=== PATIENT | female | born 1995 | race Caucasian/White ===

== ENCOUNTER 2017-11-05 21:44 | Emergency (ER) | payer OTHER ==
[2017-11-05] MEDS ORDERED: Ibuprofen TAB* 600 MG PO ONE (22:47)
--- NOTE | 2017-11-05 22:50 | ED ---
Influenza-Like Illness - HPI Summary HPI Summary: 22F presents with fever for past day. She has been taking nyquil and dayquil. She admits to a dry cough. She admits to body aches. She denies any chest pain , SOB, abdominal pain, nausea, vomiting, sore throat, or ear pain. She states that had a fever of 102 but did not take anything for it. She denies any headache. She denies any neck stiffness or photophobia. She has had a decrease in appetite but has been drinking normally. - History of Current Complaint Chief Complaint: EDFever Time Seen by Provider: 11/05/17 22:33 - Allergy/Home Medications Allergies/Adverse Reactions: Allergies Allergy/AdvReac Type Severity Reaction Status Date / Time No Known Allergies Allergy Verified 11/05/17 22:40 PMH/Surg Hx/FS Hx/Imm Hx Endocrine/Hematology History: Denies: Hx Anticoagulant Therapy Cardiovascular History: Denies: Hx Hypertension Infectious Disease History: No Infectious Disease History: Denies: Traveled Outside the [place] in Last 30 Days - Family History Known Family History: Negative: Cardiac Disease - Social History Alcohol Use: Occasionally Substance Use Type: Reports: None Smoking Status (MU): Never Smoked Tobacco Review of Systems Positive: Fever Negative: Chest Pain Positive: Cough. Negative: Shortness Of Breath Negative: Abdominal Pain All Other Systems Reviewed And Are Negative: Yes Physical Exam Triage Information Reviewed: Yes Vital Signs On Initial Exam: Initial Vitals Temp Pulse Resp BP Pulse Ox 99.3 F 89 18 132/72 99 11/05/17 21:52 11/05/17 21:52 11/05/17 21:52 11/05/17 21:52 11/05/17 21:52 Vital Signs Reviewed: Yes Appearance: Positive: Well-Appearing Skin: Positive: Warm, Dry Head/Face: Positive: Normal Head/Face Inspection Eyes: Positive: Normal, EOMI, TIMOTHY, Conjunctiva Clear ENT: Positive: Normal ENT inspection, Pharynx normal, TMs normal Neck: Positive: Supple, Nontender, No Lymphadenopathy. Negative: Nuchal Rigidity Respiratory/Lung Sounds: Positive: Clear to Auscultation, Breath Sounds Present Cardiovascular: Positive: Normal, RRR Abdomen Description: Positive: Nontender, Soft Bowel Sounds: Positive: Present Musculoskeletal: Positive: Normal Neurological: Positive: Normal Psychiatric: Positive: Normal - Collette Coma Scale Coma Scale Total: 15 Diagnostics - Vital Signs Vital Signs Temp Pulse Resp BP Pulse Ox 11/05/17 21:52 99.3 F 89 18 132/72 99 - Laboratory Lab Results: Lab Results 11/05/17 11/05/17 Range/Units 22:22 22:24 Influenza A (Rapid) Negative (Negative) Influenza B (Rapid) Negative (Negative) Group A Strep Rapid Negative (Negative) Lab Statement: Any lab studies that have been ordered have been reviewed, and results considered in the medical decision making process. Flu Symptom Course/Dx - Course Course Of Treatment: 22F presents with fever for past day. She has been taking nyquil and dayquil. She admits to a dry cough. She admits to body aches. She denies any chest pain, SOB, abdominal pain, nausea, vomiting, sore throat, or ear pain. She states that had a fever of 102 but did not take anything for it. She denies any headache. She denies any neck stiffness or photophobia. She has had a decrease in appetite but has been drinking normally. on exam lungs CTA. pharynx normal. abdomen soft nontender. flu and strept neg. discussed with patient likely viral. told to add ibuprofen. patient understand and agrees with plan. - Diagnoses Differential Diagnosis/HQI/PQRI: Positive: Influenza, Pneumonia, Upper Respiratory Infection Provider Diagnoses: Fever Discharge - Discharge Plan Condition: Good Disposition: HOME Patient Education Materials: Fever in Adults (ED) Referrals: No Primary Care Phys,NOPCP [Primary Care Provider] - Additional Instructions: Take Tylenol or ibuprofen every 6 hours for fever Use saline in the nose for nasal congestion Use humidifier or place warm bowls of water around the room for cough Return to ED if develop any new or worsening symptoms
[2017-11-05 23:10] VITALS: BP 117/52
== END 2017-11-05 23:06 | disposition home or self-care (01) ==
LOC: ED 21:44
DX: R50.9 Fever, unspecified (principal); R05 Cough; R52 Pain, unspecified
CPT/HCPCS: 87502; 87651; 99282; A9270-GY

== ENCOUNTER 2019-01-09 06:36 | Emergency (ER) | payer OTHER ==
--- NOTE | 2019-01-09 06:57 | ED ---
Throat Pain/Nasal Congestion - HPI Summary HPI Summary: Patient is a 22-year-old female with a history of strep throat as a child presenting to the ED with sore throat 24 hours. 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 She denies any fevers, sweats, chills. She does endorse a decreased appetite and feelings of GERD-like symptoms intermittently. She states this is improved with over-the- counter Tums. She offers no other complaints on this date. She states she has been otherwise healthy and feels at her baseline. - History of Current Complaint Chief Complaint: EDThroatPain Time Seen by Provider: 01/09/19 06:48 Hx Obtained From: Patient Onset/Duration: Sudden Onset Severity: Moderate - Epiglottits Risk Factors Epiglottis Risk Factors: Negative - Allergies/Home Medications Allergies/Adverse Reactions: Allergies Allergy/AdvReac Type Severity Reaction Status Date / Time No Known Allergies Allergy Verified 11/05/17 22:40 PMH/Surg Hx/FS Hx/Imm Hx Previously Healthy: Yes Endocrine/Hematology History: Denies: Hx Anticoagulant Therapy Cardiovascular History: Denies: Hx Hypertension Infectious Disease History: No Infectious Disease History: Denies: Traveled Outside the [place] in Last 30 Days - Family History Known Family History: Negative: Cardiac Disease - Social History Occupation: Student Lives: Dormitory/Roommates Alcohol Use: Occasionally Hx Substance Use: No Substance Use Type: Reports: None Smoking Status (MU): Never Smoked Tobacco Review of Systems Constitutional: Negative Negative: Fever, Chills, Fatigue, Skin Diaphoresis Negative: Diplopia, Drainage Positive: Sore Throat. Negative: Dental Pain, Ear Ache, Nasal Discharge Negative: Palpitations, Chest Pain Genitourinary: Negative Positive: no symptoms reported, see HPI Negative: Arthralgia, Myalgia Skin: Negative All Other Systems Reviewed And Are Negative: Yes Physical Exam Triage Information Reviewed: Yes Vital Signs On Initial Exam: Initial Vitals Temp Pulse Resp BP Pulse Ox 98.2 F 51 16 123/67 99 01/09/19 06:36 01/09/19 06:36 01/09/19 06:36 01/09/19 06:36 01/09/19 06:36 Vital Signs Reviewed: Yes Appearance: Positive: Well-Appearing, Well-Nourished Skin: Positive: Warm, Skin Color Reflects Adequate Perfusion Head/Face: Positive: Normal Head/Face Inspection, Temporal Artery Tenderness Eyes: Positive: EOMI, Conjunctiva Clear ENT: Positive: Pharyngeal erythema. Negative: Tonsillar swelling, Tonsillar exudate, Hoarse voice, Dental tenderness, Sinus tenderness Neck: Positive: No Lymphadenopathy Respiratory/Lung Sounds: Positive: Clear to Auscultation, Breath Sounds Present Cardiovascular: Positive: RRR, Pulses are Symmetrical in both Upper and Lower Extremities Musculoskeletal: Positive: Normal, Strength/ROM Intact Neurological: Positive: Speech Normal Psychiatric: Positive: Normal, Affect/Mood Appropriate Diagnostics - Vital Signs Vital Signs Temp Pulse Resp BP Pulse Ox 01/09/19 06:36 98.2 F 51 16 123/67 99 - Laboratory Lab Statement: Any lab studies that have been ordered have been reviewed, and results considered in the medical decision making process. EENT Course/Dx - Course Course Of Treatment: Patient is evaluated for sore throat. On physical examination, she has pharyngeal erythema without tonsillar exudates or swelling. She endorses pain with swallowing, however denies any difficulty with swallowing. She denies any fevers, sweats, chills. Vital signs are stable on arrival. Strep swab obtained. Strep swab negative. She will be diagnosed with posterior pharyngitis. She is given instructions for Tylenol and Cepacol tabs. She understands these and voices no concerns at this time. - Diagnoses Provider Diagnoses: Pharyngitis Discharge - Sign-Out/Discharge Documenting (check all that apply): Patient Departure Patient Received Moderate/Deep Sedation with Procedure: No - Discharge Plan Condition: Stable Disposition: HOME Patient Education Materials: Pharyngitis (ED) Referrals: No Primary Care Phys,NOPCP [Primary Care Provider] - Additional Instructions: Over the counter cepacol tabs or chloroseptic tabs Drink plenty of water Rest Tylenol 650mg three times daily for discomfort - Billing Disposition and Condition Condition: STABLE Disposition: Home
[2019-01-09 08:01] VITALS: BP 121/64
== END 2019-01-09 08:00 | disposition home or self-care (01) ==
LOC: ED 06:36
DX: J02.9 Acute pharyngitis, unspecified (principal)
CPT/HCPCS: 87651; 99282

== ENCOUNTER 2020-01-28 19:53 | Emergency (ER) | payer OTHER ==
[2020-01-28] MEDS ORDERED: Cephalexin CAP* 500 MG PO ONE (21:23)
--- NOTE | 2020-01-28 21:25 | ED ---
Skin Complaint - HPI Summary HPI Summary: This pt is a 24 Y/O F presenting to [facility] with a CC of a red streak running up her RFA from a burst blister on her R hand. She states that the blister was present on 01/26/2020 and burst while rowing. She states that the streak appeared today when she woke up. She denies any SOB, headaches, N/V, fevers, and chills. She states that she got the blister while rowing and states that the pain has increased since the onset to a 4/10 in severity. She has no aggravating or alleviating factors. She has no pertinent PMHx. - History of Current Complaint Chief Complaint: EDExtremityLower Time Seen by Provider: 01/28/20 21:11 Stated Complaint: POSS INFECTION ON RT ARM PER PT Hx Obtained From: Patient Onset/Duration: Started Days Ago - 2, Still Present Skin Exposure Onset/Duration: Days Ago - 2 Timing: Constant, Lasting Days - 2 Onset Severity: Mild Current Severity: Mild Pain Intensity: 4 Pain Scale Used: 0-10 Numeric Skin Location: Other: - R hand Character: Redness Aggravating Symptom(s): Nothing Alleviating Symptom(s): Nothing Associated Signs & Symptoms: Negative - SOB, headaches, N/V, fevers, and chills. , Red Streaks - up RFA Related History: Trauma - recent burst blister - Allergy/Home Medications Allergies/Adverse Reactions: Allergies Allergy/AdvReac Type Severity Reaction Status Date / Time No Known Allergies Allergy Verified 01/28/20 20:00 Home Medications: Home Medications Cephalexin CAP* [Keflex CAP*] 500 mg PO QID #40 cap 01/28/20 [Rx] PMH/Surg Hx/FS Hx/Imm Hx Previously Healthy: Yes Endocrine/Hematology History: Denies: Hx Anticoagulant Therapy Cardiovascular History: Denies: Hx Hypertension Sensory History: Reports: Hx Contacts or Glasses Opthamlomology History: Reports: Hx Contacts or Glasses - Cancer History Hx Chemotherapy: No Hx Radiation Therapy: No - Surgical History Surgical History: None - Immunization History Immunizations Up to Date: Yes Infectious Disease History: No Infectious Disease History: Denies: Traveled Outside the [place] in Last 30 Days - Family History Known Family History: Negative: Cardiac Disease - Social History Occupation: Student - [employer] Lives: Alone Alcohol Use: Occasionally Hx Substance Use: No Substance Use Type: Reports: None Smoking Status (MU): Never Smoked Tobacco Review of Systems Negative: Fever, Chills Negative: Shortness Of Breath Negative: Vomiting, Nausea Skin: Other - red streak up RFA Positive: Other - blister on R hand Negative: Headache All Other Systems Reviewed And Are Negative: Yes Physical Exam - Summary Physical Exam Summary: Appearance: Well-appearing, Well-nourished, lying in bed comfortable Skin: Warm, dry, no obvious rash, healing blister on R palm without erythema, narrow streak of lymphangetic streaking on the R forearm and terminating at the elbow. No cubital or axillary adenopathy Eyes: sclera anicteric, no conjunctival pallor ENT: mucous membranes moist Neck: deferred Respiratory: No signs of respiratory distress Cardiovascular: Appears well perfused, pulses are nml Abdomen: deferred Musculoskeletal: Moving all 4 extremities without obvious discomfort Neurological: Awake and alert, mentation is normal, speech is fluent and appropriate Psychiatric: affect is normal, does not appear anxious or depressed Triage Information Reviewed: Yes Vital Signs On Initial Exam: Initial Vitals Temp Pulse Resp BP Pulse Ox 98.4 F 74 16 118/75 100 01/28/20 19:55 01/28/20 19:55 01/28/20 19:55 01/28/20 19:55 01/28/20 19:55 Vital Signs Reviewed: Yes Procedures - Sedation Patient Received Moderate/Deep Sedation with Procedure: No Diagnostics - Vital Signs Vital Signs Temp Pulse Resp BP Pulse Ox 01/28/20 19:55 98.4 F 74 16 118/75 100 - Laboratory Lab Statement: Any lab studies that have been ordered have been reviewed, and results considered in the medical decision making process. Course/Dx - Course Course Of Treatment: This pt is a 24 Y/O F presenting to [facility] with a CC of a red streak running up her RFA from a burst blister on her R hand. She states that the blister was present on 01/26/2020 and burst while rowing. She states that the streak appeared today when she woke up. Her PE found a healing blister on R palm without erythema, narrow streak of lymphangetic streaking on the R forearm and terminating at the elbow. No cubital or axillary adenopathy. She will be discharged home with ABx Tx for cellulitis. - Diagnoses Provider Diagnoses: Cellulitis Discharge ED - Sign-Out/Discharge Documenting (check all that apply): Patient Departure - discharge - Discharge Plan Condition: Good Disposition: HOME Prescriptions: Cephalexin CAP* [Keflex CAP*] 500 mg PO QID #40 cap Patient Education Materials: Cellulitis (ED) Referrals: [facility] [Outside] - Billing Disposition and Condition Condition: GOOD Disposition: Home - Attestation Statements Document Initiated by Daly: Yes Documenting Scribe: Jason Liz Provider For Whom Daly is Documenting (Include Credential): Daniel Landis MD Scribe Attestation: Jason Arriola scribed for Daniel Landis MD on 01/29/20 at 0311. Scribe Documentation Reviewed: Yes Provider Attestation: The documentation as recorded by the Jason pickering accurately reflects the service I personally performed and the decisions made by me, Daniel Landis MD Status of Scribe Document: Viewed
[2020-01-28 21:45] VITALS: BP 116/70
== END 2020-01-28 21:45 | disposition home or self-care (01) ==
LOC: ED 19:53
DX: L03.113 Cellulitis of right upper limb (principal)
CPT/HCPCS: 99282; A9270-GY